=== PATIENT | male | born 1975 | race Caucasian/White ===

== ENCOUNTER 2019-07-19 18:07 | Emergency (ER) | payer SELFPAY ==
--- NOTE | 2019-07-19 18:35 | RAD ---
Right wrist 3 views HISTORY: Right wrist injury. FINDINGS: Comminuted predominantly transverse fracture of the distal radius is present. Sagittally or iented intra-articular component through the far medial margin of the articular surface of the radius shows 0.3 cm medial displacement of the fragment. Resultant dorsal tilt. Inclination is mainta ined. No significant impaction. Mild degenerative changes of the wrist. IMPRESSION: Comminuted intra-articular distal right radial fracture with dorsal tilt.
[2019-07-19] MEDS ORDERED: HYDROcodone/Acetaminophen 10/325 mg Tablet ONE (20:42)
== END 2019-07-19 21:05 | disposition home or self-care (01) ==
LOC: ERS 18:07
DX: S52.571A Other intraarticular fracture of lower end of right radius, initial encounter for closed fracture (principal); F17.210 Nicotine dependence, cigarettes, uncomplicated; W01.0XXA Fall on same level from slipping, tripping and stumbling without subsequent striking against object, initial encounter; Y93.01 Activity, walking, marching and hiking; Y92.812 Truck as the place of occurrence of the external cause
CPT/HCPCS: 29125; 99406

== ENCOUNTER 2019-07-31 11:07 | Day surgery (SDC) | payer OTHER, SELFPAY ==
[~2019-07-31 11:07] MED LIST: Bupivacaine HCl 0.5%/Epinephrine 1:200,000/PF 30 ml Vial ONE; Dexamethasone 20 MG/5 ML VIAL ONE; Lidocaine 1% PF 5 ML VIAL ONE; Ondansetron PF 4 MG/2 ML Vial ONE; PROPOFOL 200 MG/20 ML VIAL ONE
[2019-07-31] MEDS ORDERED: Midazolam HCl 2 mg/2 ml Vial ONE (15:12)
[2019-07-31] MEDS ORDERED: Fentanyl 100 MCG/2 ML VIAL ONE ×2 (15:12→15:29)
--- NOTE | 2019-08-01 00:12 | OP ---
DATE OF PROCEDURE: 07/31/2019 PREOPERATIVE DIAGNOSIS: Right intra-articular distal radius fracture (three fragments). POSTOPERATIVE DIAGNOSIS: Right intra-articular distal radius fracture (three fragments). PROCEDURE PERFORMED: Open reduction and internal fixation of left distal radius. ANESTHESIA: General. DIRECT SUPPORT WORKER: Molina Appiah PA-C TOURNIQUET TIME: 50 minutes at 250 mmHg. IMPLANTS: Synthes 2.4 mm variable angle LCP 2-column plate with screws. COMPLICATIONS: None. DRAINS: None. SPECIMEN: None. OUTCOME: Near-anatomic alignment. INDICATIONS: The patient is a 44-year-old gentleman, status post fall on outstretched right wrist sustaining a distal radius fracture with intra-articular extension. After discussion with the patient including risks and benefits, we decided to proceed with open reduction and internal fixation of this fracture to restore more normal anatomy and hopefully facilitate improved function. Informed consent has been obtained. I believe all questions answered. DESCRIPTION OF PROCEDURE: The patient was brought to the operating room and a time-out performed followed by induction of general anesthesia. Next, the patient was positioned supine on the OR table with the right arm held on an extremity board. Next, a sterile prep and drape was performed of this right upper extremity. The limb was exsanguinated with Esmarch bandage, tourniquet inflated to 250 mmHg. Next, a volar radial skin incision was made after skin sharply incised. Dissection was carried down between the interval of the flexor carpi radialis and brachioradialis, taking care to identify the neurovascular bundle and reflected radially. The pronator quadratus was released off the radial border of the distal radius and reflected to the midline revealing the underlying fracture. The fracture was reduced under direct visualization and then a plate was applied to the volar surface of the distal radius. This was held in place provisionally with a cortical screw in the proximal longitudinal limb of the plate. The fracture was then manipulated and reduced to the plate and then a total of 4 locking screws were passed into the articular fragment of this fracture. This resulted in anatomic alevism of radial inclination, volar tilt, and length. Two additional cortical screws were placed proximally. The wound was then irrigated with bulb syringe and closed in layers with 0 Vicryl deep, followed by 2-0 Vicryl and nylon for the skin. Xeroform gauze, Webril, and fiberglass splint was applied to the right wrist and then the patient was transferred to recovery room in stable condition. There were no complications. He tolerated the procedure well. Tourniquet was let down at the completion of dressing. Job ID: [id number]
--- NOTE | 2019-08-01 09:20 | RAD ---
RIGHT WRIST 2 VIEWS: INDICATION: History of ORIF Of the distal right radius. COMPARISON: Right wrist radiographs dated 07/19/2015. FINDINGS: Since the comparison examination, there has been interval open reduction internal fixation of the int raarticular distal radius fracture. Fracture alignment is near anatomic. The ulnar styloid process fracture has not appreciably changed in position. Total fluoroscopic time is 15.9 seconds. Total ex posure is 0.20 mGy. IMPRESSION: Interval open reduction internal fixation of the distal right radius. Fracture alignment is near jolie tomic. Instrumentation projects in the expected position. Ulnar styloid process fracture is unchang ed in position. POS: [facility]
== END 2019-07-31 18:11 | disposition home or self-care (01) ==
LOC: SDC 11:07
PROVIDERS: ATTEND Orthopaedic Surgery
PROC: 0PSH04Z Reposition Right Radius with Internal Fixation Device, Open Approach (ICD-10-PCS; principal; 2019-07-31)
DX: S52.571A Other intraarticular fracture of lower end of right radius, initial encounter for closed fracture (principal); F17.200 Nicotine dependence, unspecified, uncomplicated; Z88.5 Allergy status to narcotic agent; W17.89XA Other fall from one level to another, initial encounter
CPT/HCPCS: 76000; C1713; J0670; J0690; J1100; J2001; J2250; J2405; J2704; J3010